=== PATIENT | male | born 1940 | race Caucasian/White ===

== ENCOUNTER 2016-12-12 04:40 | Emergency (ER) | payer MEDICARE, BC ==
[~2016-12-12] VITALS: Ht 170.2 cm; Wt 87.6 kg
[~2016-12-12 04:40] MED LIST: CEPH500C3 PO; EZET10 PO; GEMF600 PO; LATA.005%O OD; OMEP20CA5 PO; REST0.05 OU
[2016-12-12 04:48] VITALS: BP 173/113; PULSE 89; RESP 20; TEMP 98.1; O2SAT 94
[2016-12-12] MEDS ORDERED: LIDOCAINE HCL 1% PF 30 ML VIAL INFIL ONE (05:00)
[2016-12-12] MEDS ORDERED: TETANUS/DIPHTHERIA TOXOID ADULT 0.5 ML VIAL IM ONE (05:00)
--- NOTE | 2016-12-12 05:09 | PD ---
HPI Chief Complaint: Fall Time Seen by Provider: 04:59 Travel History International Travel<30 days: No Contact w/Intl Traveler<30days: No Traveled to known affect area: No History of Present Illness HPI 76-year-old male presents to the emergency department by private transportation for evaluation of laceration to the face status post fall from his bed. Patient reportedly was sleeping and having a nightmare and states that the next thing he knew he was on the floor and had cut his face on the edge of the night stand. Patient does not report any loss of consciousness or altered mentation. No visual disturbance, no nausea or vomiting, and denies any upper or lower extremity numbness, tingling, or weakness. Patient states he has felt slightly off balance since the fall. Patient also complains of some facial pain and has a 2.5 cm laceration to the lateral inferior aspect of the right eye bleeding is controlled. Patient wears eye glasses but did not bring them with him to the emergency department. Patient is not report any visual disturbance, loss of vision, double vision, or blurring of vision. Patient is diabetic. Patient does not know his tetanus status. [place]. Patient states he has chronic neck and shoulder pain but seems that since his fall his neck and shoulder pain is increased from his baseline. Patient denies other injury. Patient did not injure his chest ribs abdomen back upper or lower extremities. Patient rates discomfort as mild to moderate. Patient has had no nausea or vomiting. PFSH Past Medical History Narrative Medical Dyslipidemia diabetes hernia; eye/cataract surgery; no tobacco use; nursing notes reviewed High Cholesterol: Yes GERD: Yes Inguinal Hernia: Yes Past Surgical History Eye Surgery: Yes (CATARACT) Social History Alcohol Use: No Tobacco Use: No Substance Use: No Allergies-Medications (Allergen,Severity, Reaction): Coded Allergies: Vicodin (Verified Allergy, Severe, NAUSEATED, 12/12/16) Reported Meds & Prescriptions Reported Meds & Active Scripts Active Reported Refresh Opth Drops (Polyvinyl Alcohol-Povidone Opth Drops) 1.4-0.6% Drops 1-2 Drop EACH EYE PRN PRN Timolol Opth Drops 0.25 % Soln 1 Drop EACH EYE BID Glipizide 5 Mg Tab 5 Mg PO BIDAC Take 30 minutes before a meal Restasis Opth Drops (Cyclosporine Opth Drops) 0.05% Emul 1 Drop EACH EYE DAILY Propranolol (Propranolol HCl) 10 Mg Tab 10 Mg PO Q12HR Omeprazole 20 Mg Tab 20 Mg PO DAILY Review of Systems Except as stated in HPI: all other systems reviewed are Neg General / Constitutional: No: Fever Eyes: No: Diploplia, Blurred Vision, Photophobia, Pain, Visual changes, Blindness HENT: Positive: Lightheadedness, Neck Stiffness, No: Headaches, Vertigo, Neck Pain Cardiovascular: No: Chest Pain or Discomfort Respiratory: No: Cough, Shortness of Breath Gastrointestinal: No: Nausea, Vomiting, Abdominal Pain Genitourinary: No: Flank Pain Musculoskeletal: No: Myalgias, Arthralgias Skin: Positive Other (laceration), No Rash, No Itching Neurologic: No: Weakness, Dizziness, Syncope, Focal Abnormalities, Coordination Problem, Ataxia, Headache, Change in Mentation, Slurred Speech, Paresthesia, Incontinence, Seizures, Sensory Disturbance Psychiatric: No: Anxiety Endocrine: No: Heat Intolerance Hematologic/Lymphatic: No: Easy Bruising Physical Exam Narrative GENERAL: Well-developed well-nourished male in no acute distress no respiratory distress; GCS 15 SKIN: Warm and dry. HEAD: Atraumatic. Normocephalic. No scalp soft tissue swelling abrasion laceration or bony abnormalities. EYES: Pupils equal and round. Extraocular muscles intact. No scleral icterus. No injection or drainage. 2.5 cm linear laceration along the right lateral infraorbital quarter cheek soft tissue of the right eye; no palpable bony crepitus. Fluorescein stain: No uptake ENT: No nasal bleeding or discharge. Mucous membranes pink and moist. Airway is patent. Tympanic membranes no hemotympanum. NECK: Trachea midline. No JVD. No midline tenderness to direct palpation along the cervical spine or bony step-off. CARDIOVASCULAR: Regular rate and rhythm. RESPIRATORY: No accessory muscle use. Clear to auscultation. Breath sounds equal bilaterally. GASTROINTESTINAL: Abdomen soft, non-tender, nondistended. Hepatic and splenic margins not palpable. MUSCULOSKELETAL: Extremities without clubbing, cyanosis, or edema. No obvious deformities. NEUROLOGICAL: Awake and alert. GCS 15. No obvious cranial nerve deficits. Motor grossly within normal limits. Five out of 5 muscle strength in the arms and legs. Normal speech. PSYCHIATRIC: Appropriate mood and affect; insight and judgment normal. Data Data Last Documented VS Vital Signs Date Time Temp Pulse Resp B/P Pulse Ox O2 Delivery O2 Flow Rate FiO2 12/12/16 04:48 98.1 89 20 173/[address] Brain W/O Iv Contrast(Rout) (12/12/16 ) Ct Cerv Spine W/O Contrast (12/12/16 ) Ct Facial Bones W/O Iv Cont (12/12/16 ) Ice/Cold Pack (12/12/16 04:59) Lidocaine Pf 1% Inj (Xylocaine-Mpf 1% In (12/12/16 05:00) Tetanus/Diphtheria Tox Adult (Tetanus/Di (12/12/16 05:00) MDM Medical Decision Making Medical Screen Exam Complete: Yes Emergency Medical Condition: Yes Medical Record Reviewed: Yes Interpretation(s) Last Impressions Maxillofacial CT 12/12/16 0000 Signed Impressions: Service Date/Time: Monday, December 12, 2016 05:46 - CONCLUSION: No fracture or acute finding is identified. Alessandro Green MD Head CT 12/12/16 0000 Signed Impressions: Service Date/Time: Monday, December 12, 2016 05:46 - CONCLUSION: 1. No acute intracranial abnormality is identified. 2. Mild cerebral atrophy and nonspecific asymmetry of the frontal horns of the lateral ventricles. Alessandro Green MD Cervical Spine CT 12/12/16 0000 Signed Impressions: Service Date/Time: Monday, December 12, 2016 05:46 - CONCLUSION: Degenerative disc disease at multiple levels. No acute cervical spine abnormality is identified. Alessandro Green MD Differential Diagnosis Laceration, contusion, orbital fracture, globe injury, closed head injury, ICH, cervical spine sprain strain fracture cord compression Narrative Course 68-year-old male presents with laceration repair without neurologic abnormal focality by exam intact range of motion of the right globe with brisk pupillary response to light extraocular muscles intact and no orbital rim crepitus or step -off. Laceration will require repair. Tetanus status updated. Imaging studies ordered. Ice pack applied. Laceration repaired with good wound closure; patient tolerated well Fluorescein stain: No uptake; visual acuity without corrective lenses/eyeglasses : right eye 20/20; left eye 20/20; both eyes 20/13 glucose: 255 @7:14 AM patient is stable for outpatient management, GCS 15, and follow-up with primary care provider; patient and spouse questions have been answered to their satisfaction. Procedures Procedure Narrative LACERATION LOCATION: Right face lateral infra orbital LENGTH: 2.5 cm a regular NUMBER OF STITCHES/MIC: 7 REPAIR: The area of the laceration was prepped with Betadine and sterilely draped. The laceration was infiltrated with 1% lidocaine plain. The wound was copiously irrigated and explored without evidence of foreign body, tendon injury or neurovascular injury. The wound was closed using 6-0 Prolene. This was a single layer repair. A sterile dressing was applied. The patient was advised to keep the dressing clean and dry. Patient tolerated the procedure well. Diagnosis Primary Impression: Facial laceration Qualified Code: S01.81XA - Facial laceration, initial encounter Additional Impressions: Closed head injury without loss of consciousness Qualified Code: S09.90XA - Closed head injury without loss of consciousness, initial encounter Cervical strain, acute Qualified Code: S16.1XXA - Cervical strain, acute, initial encounter Facial contusion Qualified Code: S00.83XA - Facial contusion, initial encounter Referrals: Primary Care Physician 2 days Patient Instructions: General Instructions Additional Instructions: Keep wound site clean and dry Change dressing daily and apply antibiotic ointment Take pain medication as prescribed as needed --- use with caution as may impair judgment, delay reaction time, increased risk for fall, cause constipation complete course of antibiotic Recommend two-day wound check and 5-7 days suture removal; follow-up with primary care provider for suture care or through the emergency department Return to the emergency department for any concerns or change in condition Apply ice intermittently to areas of soft tissue injury for the first 12-24 hours then to neck and back area may subsequently use as needed moist heat May use acetaminophen/Tylenol for fever 100.4F or greater or for minor pain May use as tolerated ibuprofen/Advil/Motrin every 6-8 hours as needed for fever 100.4F or greater or for pain associated with inflammation May use Zofran as prescribed as needed for nausea and/or vomiting Follow head injury precautions 24 hours Med/Other Pt SpecificInfo: Prescription(s) given Scripts Cephalexin (Keflex)500 Mg [id number] Mg PO Q6H 7 Days Ref 0 Prov:Sabine Murrell MD 12/12/16 Oxycodone-Acetaminophen (Percocet)5-325 mg Tab0.5-1 Tab PO Q6H PRN (PAIN GREATER THAN 7) #10 TAB Ref 0 Prov:Sabine Murrell MD 12/12/16 Ondansetron Odt (Zofran Odt)4 Mg Tab4 Mg SL Q6HR PRN (Nausea/Vomiting) #10 TAB Ref 0 Prov:Sabine Murrell MD 12/12/16 Disposition: 01 DISCHARGE HOME Condition: Stable Sabine Murrell MD Dec 12, 2016 05:09
[2016-12-12] MEDS ORDERED: REFRDRO EACH EYE (05:49)
[2016-12-12] MEDS ORDERED: GLIP5TAB8 PO (05:49)
[2016-12-12] MEDS ORDERED: REST0.05 EACH EYE (05:49)
[2016-12-12] MEDS ORDERED: PROP10TA6 PO (05:49)
[2016-12-12] MEDS ORDERED: TIMO5SOL EACH EYE (05:49)
[2016-12-12] MEDS ORDERED: OMEP20TA PO (05:49)
--- NOTE | 2016-12-12 06:17 | RADHPO ---
EXAM DATE/TIME: 12/12/2016 05:46 [facility] COMPARISON: No previous studies available for comparison. INDICATIONS : Fall. Right sided head and facial trauma. RADIATION DOSE: 63 CTDIvol (mGy) MEDICAL HISTORY : None SURGICAL HISTORY : Cataract extraction. ENCOUNTER: Initial ACUITY: 1 day PAIN SCALE: 6/10 LOCATION: Right frontal TECHNIQUE: Multiple contiguous axial images were obtained of the head. Using automated exposure control and adj ustment of the mA and/or kV according to patient size, radiation dose was kept as low as reasonably a chievable to obtain optimal diagnostic quality images. FINDINGS: CEREBRUM: There is mild true atrophy. Ventricles are mildly prominent with asymmetry of the frontal horns. No evidence of midline shift, mass lesion, hemorrhage or acute infarction. No extra-axial fluid collect ions are seen. POSTERIOR FOSSA: The cerebellum and brainstem demonstrate no acute finding. The 4th ventricle is midline. The cerebe llopontine angle is unremarkable. EXTRACRANIAL: The visualized portion of the orbits is intact. SKULL: The calvaria is intact. No evidence of skull fracture. CONCLUSION: 1. No acute intracranial abnormality is identified. 2. Mild cerebral atrophy and nonspecific asymmetry of the frontal horns of the lateral ventricles. Alessandro Green MD on December 12, 2016 at 6:14 Board Certified Radiologist. This report was verified electronically.
--- NOTE | 2016-12-12 06:20 | RADHPO ---
EXAM DATE/TIME: 12/12/2016 05:46 [facility] COMPARISON: No previous studies available for comparison. INDICATIONS : Fall. Right sided head and facial trauma. RADIATION DOSE: 26.64 CTDIvol (mGy) MEDICAL HISTORY : None SURGICAL HISTORY : Cataract extraction. ENCOUNTER: Initial ACUITY: 1 day PAIN SCALE: 8/10 LOCATION: neck TECHNIQUE: Volumetric scanning of the cervical spine was performed. Multiplanar reconstructions in the sagittal, coronal and oblique axial planes were performed. Using automated exposure control and adjustment o f the mA and/or kV according to patient size, radiation dose was kept as low as reasonably achievable to obtain optimal diagnostic quality images. FINDINGS: There is normal sagittal spine alignment of the cervical spine. No anterolisthesis or retrolisthesis is present. The atlantoaxial relationship is within normal limits. There is no prevertebral soft tiss ue swelling present. No fracture or dislocation is identified. No disc herniation is visualized in th e upper cervical spine. There is degenerative disc disease at C3-C4 through C6-C7. The visualized portions of the posterior fossa, paraspinous soft tissues, and upper lung zones demons trate no acute abnormality. CONCLUSION: Degenerative disc disease at multiple levels. No acute cervical spine abnormality is identified. Alessandro Green MD on December 12, 2016 at 6:16 Board Certified Radiologist. This report was verified electronically.
--- NOTE | 2016-12-12 06:23 | RADHPO ---
EXAM DATE/TIME: 12/12/2016 05:46 [facility] COMPARISON: No previous studies available for comparison. INDICATIONS : Fall. Right sided facial trauma. RADIATION DOSE: 25.87 CTDIvol (mGy) MEDICAL HISTORY : None SURGICAL HISTORY : Cataract extraction. ENCOUNTER: Initial ACUITY: 1 day PAIN SCORE: 8/10 LOCATION: Right facial TECHNIQUE: Volumetric scanning of the facial bones was performed. Using automated exposure control and adjustme nt of the mA and/or kV according to patient size, radiation dose was kept as low as reasonably achiev able to obtain optimal diagnostic quality images. FINDINGS: ORBITS: The orbital structures are intact. The retroconal structures have a normal configuration. No radiop aque foreign bodies are seen. The lenses are normally located. NASAL BONE: The nasal bones and maxillary spine are intact. ZYGOMATIC ARCHES: Symmetric without evidence of fracture. SINUSES: There are mucous retention cysts within the maxillary antra bilaterally. Otherwise, the maxillary, et hmoid, and frontal sinuses are clear. No air-fluid levels seen. NASAL CAVITY: The nasal septum is intact and midline. The lacrimal ducts are intact. SOFT TISSUES: No radiopaque foreign bodies seen. No soft-tissue swelling is seen. INTRACRANIAL: No acute intracranial abnormality is seen. OTHER: The mandible and pterygoid plates are intact. CONCLUSION: No fracture or acute finding is identified. Alessandro Green MD on December 12, 2016 at 6:19 Board Certified Radiologist. This report was verified electronically.
[2016-12-12] MEDS ORDERED: CEPH-460 PO (07:12)
[2016-12-12] MEDS ORDERED: ZOFR4TAB3 SL (07:12)
[2016-12-12] MEDS ORDERED: PERC5TAB12 PO (07:12)
[2016-12-12 07:14] VITALS: BP 174/92; PULSE 75; RESP 15
[2016-12-12] MEDS ORDERED: CEPHALEXIN MONOHYDRATE 500 MG CAP PO ONE (07:30)
== END 2016-12-12 07:30 | disposition home or self-care (01) ==
LOC: PHED 04:40
DX: S01.111A Laceration without foreign body of right eyelid and periocular area, initial encounter (principal); S09.90XA Unspecified injury of head, initial encounter; S16.1XXA Strain of muscle, fascia and tendon at neck level, initial encounter; S00.83XA Contusion of other part of head, initial encounter; M25.519 Pain in unspecified shoulder; E78.5 Hyperlipidemia, unspecified; E11.9 Type 2 diabetes mellitus without complications; W06.XXXA Fall from bed, initial encounter; Z23 Encounter for immunization; Z79.84 Long term (current) use of oral hypoglycemic drugs; Z87.39 Personal history of other diseases of the musculoskeletal system and connective tissue; Z87.19 Personal history of other diseases of the digestive system
CPT/HCPCS: 12011; 70450; 70486; 72125; 90471; 90714

== ENCOUNTER 2016-12-14 11:24 | Emergency (ER) | payer MEDICARE, BC ==
[~2016-12-14] VITALS: Ht 170.2 cm; Wt 87.4 kg
[~2016-12-14 11:24] MED LIST changes: +CEPH-460 PO; -CEPH500C3 PO; -EZET10 PO; -GEMF600 PO; +GLIP5TAB8 PO; -LATA.005%O OD; -OMEP20CA5 PO; +OMEP20TA PO; +PERC5TAB12 PO; +PROP10TA6 PO; +REFRDRO EACH EYE; +REST0.05 EACH EYE; -REST0.05 OU; +TIMO5SOL EACH EYE; +ZOFR4TAB3 SL
[2016-12-14 11:27] VITALS: BP 138/90; PULSE 80; RESP 16; TEMP 98.3; O2SAT 94
--- NOTE | 2016-12-14 12:08 | PD ---
HPI Chief Complaint: Eye Problems/Injury Time Seen by Provider: 12:00 Travel History International Travel<30 days: No Contact w/Intl Traveler<30days: No Traveled to known affect area: No History of Present Illness HPI 76-year-old male is here for wound check. Patient status post suture repair for facial laceration 2 days ago. Patient denies any new problem. PFSH Past Medical History High Cholesterol: Yes Diabetes: Yes Patient Takes Glucophage: No GERD: Yes Inguinal Hernia: Yes (right) Past Surgical History Eye Surgery: Yes (CATARACT) Social History Alcohol Use: No Tobacco Use: No Substance Use: No Allergies-Medications (Allergen,Severity, Reaction): Coded Allergies: Vicodin (Verified Allergy, Severe, NAUSEATED, 12/14/16) Reported Meds & Prescriptions Reported Meds & Active Scripts Active Keflex (Cephalexin) 500 Mg Cap 500 Mg PO Q6H 7 Days Percocet (Oxycodone-Acetaminophen) 5-325 mg Tab 0.5-1 Tab PO Q6H PRN Zofran Odt (Ondansetron Odt) 4 Mg Tab 4 Mg SL Q6HR PRN Reported Refresh Opth Drops (Polyvinyl Alcohol-Povidone Opth Drops) 1.4-0.6% Drops 1-2 Drop EACH EYE PRN PRN Timolol Opth Drops 0.25 % Soln 1 Drop EACH EYE BID Glipizide 5 Mg Tab 5 Mg PO BIDAC Take 30 minutes before a meal Restasis Opth Drops (Cyclosporine Opth Drops) 0.05% Emul 1 Drop EACH EYE DAILY Propranolol (Propranolol HCl) 10 Mg Tab 10 Mg PO Q12HR Omeprazole 20 Mg Tab 20 Mg PO DAILY Review of Systems General / Constitutional: No: Fever Eyes: No: Visual changes HENT: No: Headaches Cardiovascular: No: Chest Pain or Discomfort Respiratory: No: Shortness of Breath Gastrointestinal: No: Abdominal Pain Genitourinary: No: Dysuria Musculoskeletal: No: Pain Skin: No Rash Neurologic: No: Weakness Psychiatric: No: Depression Endocrine: No: Polydipsia Hematologic/Lymphatic: No: Easy Bruising Physical Exam Narrative GENERAL: Well-nourished, well-developed patient. SKIN: Focused skin assessment warm/dry. HEAD: Normocephalic. EYES: No scleral icterus. No injection or drainage. NECK: Supple, trachea midline. No JVD or lymphadenopathy. CARDIOVASCULAR: Regular rate and rhythm without murmurs, gallops, or rubs. RESPIRATORY: Breath sounds equal bilaterally. No accessory muscle use. GASTROINTESTINAL: Abdomen soft, non-tender, nondistended. MUSCULOSKELETAL: No cyanosis, or edema. BACK: Nontender without obvious deformity. No CVA tenderness. The wound is clean and dry. Sutures in place. Mild ecchymosis noted. Data Data Last Documented VS Vital Signs Date Time Temp Pulse Resp B/P Pulse Ox O2 Delivery O2 Flow Rate FiO2 12/14/16 11:27 98.3 80 16 138/90 94 MDM Medical Decision Making Medical Screen Exam Complete: Yes Emergency Medical Condition: Yes Medical Record Reviewed: Yes Differential Diagnosis Wound check facial laceration. Narrative Course 76-year-old male for wound check. Status post facial laceration with suture repair 2 days ago. Diagnosis Primary Impression: Visit for wound check Additional Instructions: Wound care daily. Return in 5 days for suture removal. Med/Other Pt SpecificInfo: No Change to Meds Disposition: 01 DISCHARGE HOME Condition: Stable See Cespedes MD Dec 14, 2016 12:08
== END 2016-12-14 12:17 | disposition home or self-care (01) ==
LOC: PHEFT 11:24
DX: Z51.89 Encounter for other specified aftercare (principal); E78.00 Pure hypercholesterolemia, unspecified; E11.9 Type 2 diabetes mellitus without complications; K21.9 Gastro-esophageal reflux disease without esophagitis
CPT/HCPCS: 99281